=== PATIENT | male | born 1990 | race Caucasian/White ===

== ENCOUNTER 2017-06-23 23:10 | Emergency (ER) | payer OTHER ==
[~2017-06-23] VITALS: Ht 167.6 cm; Wt 65.3 kg
[2017-06-23 23:24] VITALS: Ht 167.6 cm; Wt 65.3 kg
[2017-06-24 01:44] VITALS: BP 150/86
== END 2017-06-24 01:44 | disposition home or self-care (01) ==
LOC: ED 23:10
DX: F12.929 Cannabis use, unspecified with intoxication, unspecified (principal); G35 Multiple sclerosis